=== PATIENT | female | born 1965 | race Caucasian/White ===

== ENCOUNTER 2016-12-28 21:57 | Emergency (ER) | payer OTHER, MEDICAID ==
[~2016-12-28] VITALS: Ht 172.7 cm; Wt 78.9 kg
[2016-12-28 22:11] VITALS: BP 131/80; PULSE 55; RESP 18; TEMP 97.5; O2SAT 97
--- NOTE | 2016-12-28 22:20 | NUR ---
Placed in room 07 . Placed on purchasing supervisor, blood pressure machine and pulse oximeter. To gown for exam. Side rails up. Report given to SUSANNE Em.
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
[2016-12-28] MEDS ORDERED: NACL 0.9% 1,000 ML IV ONE (22:54)
--- NOTE | 2016-12-28 22:55 | NUR ---
ER at bedside examining patient.
[2016-12-28] MEDS ORDERED: ONDANSETRON HCL 4 MG/2 ML VIAL IVP ONE (23:00)
[2016-12-28] MEDS ORDERED: MORPHINE 4 MG/ML INJ. SYRINGE IVP ONE (23:00)
--- NOTE | 2016-12-28 23:05 | NUR ---
# 20 gauge angiocath placed to Left antecubital . Use of asceptic technique. Opsite placed over site. Blood return noted. Blood for lab drawn from site. Flushed with 10 cc of normal saline. No evidence of infiltration noted. Patient tolerated well.
--- NOTE | 2016-12-28 23:10 | NUR ---
Urine specimen collected and sent lab for analyzing
[2016-12-28 23:46] LABS: BILIRUBIN,URINE NEGATIVE (NEGATIVE); BLOOD, URINE NEGATIVE (NEGATIVE); CLARITY/URINE CLEAR (CLEAR); COLOR,URINE YELLOW (YELLOW); GLUCOSE,URINE NEGATIVE (NEGATIVE); KETONES,URINE NEGATIVE (NEGATIVE); LEUKOCYTE ESTERASE ,URINE NEGATIVE (NEGATIVE); NITRITE, URINE NEGATIVE (NEGATIVE); PH,URINE 6.5 (5.0-8.0); PROTEIN URINE NEGATIVE (NEGATIVE); UROBILINOGEN,URINE 0.2 (0.2-1.0)
--- NOTE | 2016-12-28 23:57 | NUR ---
Patient reports pain 4/10 30 minutes after administration of Morphine. No adverse reactions noted. Will continue to monitor.
[2016-12-29 00:10] LABS: CALCIUM 10.1 mg/dL (8.4-11.0); CREATININE 0.72 mg/dL (0.55-1.30); POTASSIUM 3.6 mmol/L (3.5-5.1)
[2016-12-29 00:12] LABS: PROTHROMBIN TIME 10.4 SECS (9.5-12.5)
[2016-12-29 00:20] LABS: ALBUMIN 3.7 g/dL (3.4-4.8); TOTAL BILIRUBIN 0.4 mg/dL (0.0-1.0)
--- NOTE | 2016-12-29 00:27 | NUR ---
Patient resting quietly. No acute distress noted. Vital signs within normal range.
--- NOTE | 2016-12-29 01:32 | NUR ---
Patient resting quietly. No acute distress noted. Vital signs within normal range. Patient awaiting transportation home.
[2016-12-29 02:00] VITALS: BP 104/68; PULSE 50; RESP 23; TEMP 97.5; O2SAT 99
--- NOTE | 2016-12-29 02:00 | NUR ---
Patient given written and verbal discharge instructions and verbalizes understanding. ER MD discussed with patient the results and treatment provided. Patient in stable condition. ID arm band removed. IV catheter removed intact and dressing applied, no active bleeding. Rx of Tramadol given. Patient educated on pain management and to follow up with in 2-3 days. Pain Scale 0/10 Opportunity for questions provided and answered.
== END 2016-12-29 02:00 | disposition home or self-care (01) ==
LOC: SED 21:57
DX: S33.5XXA Sprain of ligaments of lumbar spine, initial encounter (principal); S13.4XXA Sprain of ligaments of cervical spine, initial encounter; R07.81 Pleurodynia; R68.84 Jaw pain; R51 Headache; J45.909 Unspecified asthma, uncomplicated; K21.9 Gastro-esophageal reflux disease without esophagitis; Z86.718 Personal history of other venous thrombosis and embolism; Z88.0 Allergy status to penicillin; Z88.1 Allergy status to other antibiotic agents; Z88.6 Allergy status to analgesic agent; Z91.040 Latex allergy status; Z88.8 Allergy status to other drugs, medicaments and biological substances; Z91.048 Other nonmedicinal substance allergy status; V89.2XXA Person injured in unspecified motor-vehicle accident, traffic, initial encounter; Y93.89 Activity, other specified; Y92.89 Other specified places as the place of occurrence of the external cause; Y99.8 Other external cause status
CPT/HCPCS: 36415; 70450; 71010; 71250; 72100; 72125; 80048; 80053; 81003; 82150; 83690; 85610; 85730; 96361; 96374; 96375; 99285; J2270; J2405; J7030

== ENCOUNTER 2017-10-28 13:32 | Emergency (ER) | payer OTHER, MEDICAID ==
[~2017-10-28] VITALS: Ht 172.7 cm; Wt 78.5 kg
[2017-10-28 13:32] VITALS: BP_SYST 119
[2017-10-28] MEDS ORDERED: KETAMINE HCL IN 0.9 % NACL 30 MG/3 ML SYRINGE IVP ONE (14:00)
[2017-10-28] MEDS ORDERED: fentaNYL CITRATE/PF 100 MCG/2 ML AMP IVP ONE (14:00)
[2017-10-28] MEDS ORDERED: ONDANSETRON HCL 4 MG/2 ML VIAL IVP ONE (14:00)
[2017-10-28] MEDS ORDERED: NACL 0.9% 1,000 ML IV ONE (14:00)
[2017-10-28 14:23] LABS: BASOPHILS % (AUTO) 0.7 % (0.0-2.0); EOSINOPHILS # (AUTO) 0.2 K/uL (0.0-0.4); EOSINOPHILS % (AUTO) 4.1 % (0.0-4.0); HEMATOCRIT 35.3 % (36-48); LYMPHOCYTES # (AUTO) 2.1 K/uL (1.0-5.5); LYMPHOCYTES % (AUTO) 36.3 % (20.5-51.5); MEAN CORPUSCULAR HEMOGLOBIN 30 pg (27-31); MEAN CORPUSCULAR HGB CONC 34 % (32-36); MEAN CORPUSCULAR VOLUME 89 fL (79.0-98.0); MONOCYTES # (AUTO) 0.3 K/uL (0.0-1.0); MONOCYTES % (AUTO) 5.3 % (1.7-9.3); NEUTROPHILS # (AUTO) 3.3 K/uL (1.8-7.7); NEUTROPHILS % (AUTO) 53.6 % (40.0-70.0); PLATELET COUNT (AUTO) 427 K/uL (130-430); RED BLOOD CELL COUNT(AUTO) 3.96 MIL/uL (4.2-6.2); RED CELL DISTRIBUTION WIDTH 13.1 % (9.0-15.0); WHITE BLOOD COUNT (AUTO) 5.9 K/uL (4.8-10.8)
[2017-10-28 14:35] LABS: CALCIUM 8.8 mg/dL (8.4-11.0); CREATININE 0.83 mg/dL (0.55-1.30); POTASSIUM 3.6 mmol/L (3.5-5.1)
[2017-10-28 14:41] LABS: ALBUMIN 3.4 g/dL (3.4-4.8); TOTAL BILIRUBIN 0.3 mg/dL (0.0-1.0)
[2017-10-28] MEDS ORDERED: KETAMINE HCL 50 MG/ML SYR ONE (14:49)
[2017-10-28 17:09] LABS: BILIRUBIN,URINE NEGATIVE (NEGATIVE); BLOOD, URINE 1+ (NEGATIVE); CLARITY/URINE CLEAR (CLEAR); COLOR,URINE YELLOW (YELLOW); GLUCOSE,URINE NEGATIVE (NEGATIVE); KETONES,URINE TRACE (NEGATIVE); LEUKOCYTE ESTERASE ,URINE 1+ (NEGATIVE); NITRITE, URINE NEGATIVE (NEGATIVE); PH,URINE 6.5 (5.0-8.0); PROTEIN URINE NEGATIVE (NEGATIVE); UROBILINOGEN,URINE 0.2 (0.2-1.0)
[2017-10-28 17:14] LABS: BACTERIA,URINE FEW /HPF (None Seen); RBC,URINE 0-3 /HPF (0-3)
[2017-10-28 17:53] VITALS: BP_SYST 121
== END 2017-10-28 17:52 | disposition home or self-care (01) ==
LOC: SED 13:32
DX: D25.9 Leiomyoma of uterus, unspecified (principal); N83.209 Unspecified ovarian cyst, unspecified side; K21.9 Gastro-esophageal reflux disease without esophagitis; J45.909 Unspecified asthma, uncomplicated; M79.7 Fibromyalgia; Z79.899 Other long term (current) drug therapy
CPT/HCPCS: 36415; 74176; 80053; 81000; 81025; 83690; 85025; 87086; 96374; 96375; 99285; J2405; J3010; J7030

== ENCOUNTER 2018-05-13 11:10 | Outpatient (CLI) | payer OTHER, MEDICAID | END 2018-05-13 19:23 | disposition home or self-care (01) | LOC: SRD 11:10 | PROVIDERS: ATTEND Internal Medicine | DX: R10.9 Unspecified abdominal pain (principal) | CPT/HCPCS: 74018 ==

== ENCOUNTER 2018-09-16 12:24 | Outpatient (CLI) | payer OTHER, MEDICAID | END 2018-09-16 20:39 | disposition home or self-care (01) | LOC: SMI 12:24 | PROVIDERS: ATTEND Internal Medicine | DX: R51 Headache (principal) | CPT/HCPCS: 70551 ==

== ENCOUNTER 2018-10-07 09:49 | Outpatient (CLI) | payer OTHER, MEDICAID | END 2018-10-07 20:23 | disposition home or self-care (01) | LOC: SMI 09:49 | PROVIDERS: ATTEND Internal Medicine | DX: M47.812 Spondylosis without myelopathy or radiculopathy, cervical region (principal); M48.02 Spinal stenosis, cervical region; M25.78 Osteophyte, vertebrae; M47.816 Spondylosis without myelopathy or radiculopathy, lumbar region; M48.061 Spinal stenosis, lumbar region without neurogenic claudication | CPT/HCPCS: 72141; 72148 ==

== ENCOUNTER 2018-10-10 08:43 | Outpatient (CLI) | payer OTHER, MEDICAID | END 2018-10-10 21:04 | disposition home or self-care (01) | LOC: SRD 08:43 | PROVIDERS: ATTEND Internal Medicine | DX: Z01.818 Encounter for other preprocedural examination (principal); E04.1 Nontoxic single thyroid nodule | CPT/HCPCS: 71046-TC; 76536-TC ==

== ENCOUNTER 2018-12-25 14:30 | Emergency (ER) | payer OTHER, MEDICAID ==
[~2018-12-25] VITALS: Ht 170.2 cm; Wt 72.6 kg
[2018-12-25 14:35] VITALS: BP_SYST 105
--- NOTE | 2018-12-25 14:49 | NUR ---
Patient to ER bed 04 to gown for evaluation. Side rails up.
--- NOTE | 2018-12-25 15:10 | NUR ---
Patient presented to ER with abdominal pain and vaginal bleeding. Patient A&Ox4, afebrile, ambulatory with walker to ER, pain 12/02, nasea, denies V/D. Patient states vaginal bleed x1 month post myectomy/ovarian cyst removal procedure in October. Patient states abdominal pain has been intermittent since procedure in October. Abdominal pain increased last to 12/02 prompting ER visit today.
[2018-12-25] MEDS ORDERED: NACL 0.9% 1,000 ML IV ONE (16:10)
--- NOTE | 2018-12-25 16:11 | NUR ---
ER Dr. Munoz at bedside examining patient.
[2018-12-25 16:44] LABS: BILIRUBIN,URINE NEGATIVE (NEGATIVE); BLOOD, URINE 3+ (NEGATIVE); CLARITY/URINE CLEAR (CLEAR); COLOR,URINE YELLOW (YELLOW); GLUCOSE,URINE NEGATIVE (NEGATIVE); KETONES,URINE NEGATIVE (NEGATIVE); LEUKOCYTE ESTERASE ,URINE NEGATIVE (NEGATIVE); NITRITE, URINE NEGATIVE (NEGATIVE); PROTEIN URINE NEGATIVE (NEGATIVE); UROBILINOGEN,URINE 0.2 (0.2-1.0)
[2018-12-25] MEDS ORDERED: MORPHINE 4 MG/ML INJ. SYRINGE IVP ONE (16:45)
[2018-12-25 16:57] LABS: BACTERIA,URINE FEW /HPF (None Seen); WBC,URINE 0-3 /HPF (0-3)
[2018-12-25 16:58] LABS: MUCUS,URINE None Seen /LPF (None Seen)
[2018-12-25 17:23] LABS: BASOPHILS % (AUTO) 0.7 % (0.0-2.0); EOSINOPHILS # (AUTO) 0.1 K/uL (0.0-0.4); EOSINOPHILS % (AUTO) 2.2 % (0.0-4.0); HEMATOCRIT 36.9 % (36-48); HEMOGLOBIN 12.2 g/dL (12.0-16.0); LYMPHOCYTES # (AUTO) 1.8 K/uL (1.0-5.5); LYMPHOCYTES % (AUTO) 31.2 % (20.5-51.5); MEAN CORPUSCULAR HEMOGLOBIN 29 pg (27-31); MEAN CORPUSCULAR HGB CONC 33 % (32-36); MEAN CORPUSCULAR VOLUME 89 fL (79.0-98.0); MONOCYTES # (AUTO) 0.3 K/uL (0.0-1.0); MONOCYTES % (AUTO) 4.6 % (1.7-9.3); NEUTROPHILS # (AUTO) 3.6 K/uL (1.8-7.7); NEUTROPHILS % (AUTO) 61.3 % (40.0-70.0); PLATELET COUNT (AUTO) 338 K/uL (130-430); RED BLOOD CELL COUNT(AUTO) 4.17 MIL/uL (4.2-6.2); RED CELL DISTRIBUTION WIDTH 15.2 % (9.0-15.0); WHITE BLOOD COUNT (AUTO) 5.9 K/uL (4.8-10.8)
[2018-12-25 17:25] LABS: ALBUMIN 3.6 g/dL (3.4-4.8); CALCIUM 9.1 mg/dL (8.4-11.0); CREATININE 0.64 mg/dL (0.55-1.30); POTASSIUM 4.1 mmol/L (3.5-5.1); TOTAL BILIRUBIN 0.2 mg/dL (0.0-1.0)
[2018-12-25] MEDS ORDERED: cefTRIAXone 1 GM IVPB PREMIX 50 ML IV ONE (17:45)
--- NOTE | 2018-12-25 18:55 | NUR ---
Patient given written and verbal discharge instructions and verbalizes understanding. ER MD discussed with patient the results and treatment provided. Patient in stable condition. ID arm band removed. IV catheter removed intact and dressing applied, no active bleeding. Rx of Ciproflaxin given. Patient educated on pain management and to follow up with PMD. Pain Scale 7/10 tolerable for patient . Opportunity for questions provided and answered. Medication side effect fact sheet provided.
[2018-12-25 19:14] VITALS: BP_SYST 105
== END 2018-12-25 18:55 | disposition home or self-care (01) ==
LOC: SED 14:30
DX: N39.0 Urinary tract infection, site not specified (principal); K21.9 Gastro-esophageal reflux disease without esophagitis; J45.909 Unspecified asthma, uncomplicated; M79.7 Fibromyalgia; Z85.41 Personal history of malignant neoplasm of cervix uteri; Z86.718 Personal history of other venous thrombosis and embolism; Z88.0 Allergy status to penicillin; Z88.1 Allergy status to other antibiotic agents; Z88.5 Allergy status to narcotic agent; Z91.048 Other nonmedicinal substance allergy status; Z88.8 Allergy status to other drugs, medicaments and biological substances
CPT/HCPCS: 36415; 74176; 80053; 81000; 81025; 83605; 85025; 87040; 93005; 96365; 96375; 99284; J0696; J2270; J7030

== ENCOUNTER 2019-01-27 09:40 | Outpatient (CLI) | payer OTHER, MEDICAID | END 2019-01-27 21:10 | disposition home or self-care (01) | LOC: SUS 09:40 | DX: I80.10 Phlebitis and thrombophlebitis of unspecified femoral vein (principal); C53.9 Malignant neoplasm of cervix uteri, unspecified; N83.299 Other ovarian cyst, unspecified side; M79.604 Pain in right leg | CPT/HCPCS: 76536-TC ==

== ENCOUNTER 2019-08-21 09:51 | Outpatient (CLI) | payer OTHER, MEDICAID | END 2019-08-21 19:51 | disposition home or self-care (01) | LOC: SUS 09:51 | PROVIDERS: ATTEND Internal Medicine | DX: E04.2 Nontoxic multinodular goiter (principal); N28.1 Cyst of kidney, acquired | CPT/HCPCS: 76536-TC; 76770 ==

== ENCOUNTER 2020-08-16 09:00 | Outpatient (CLI) | payer OTHER, MEDICAID | END 2020-08-16 20:26 | disposition home or self-care (01) | LOC: SUS 09:00 | PROVIDERS: ATTEND Internal Medicine | DX: E04.2 Nontoxic multinodular goiter (principal) | CPT/HCPCS: 76536-TC ==

== ENCOUNTER 2021-07-24 15:49 | Outpatient (CLI) | payer OTHER, MEDICAID | END 2021-07-24 21:03 | disposition home or self-care (01) | LOC: SUS 15:49 | PROVIDERS: ATTEND Internal Medicine | DX: E04.2 Nontoxic multinodular goiter (principal) | CPT/HCPCS: 76536-TC ==

== ENCOUNTER 2021-12-29 14:27 | Outpatient (CLI) | payer OTHER, MEDICAID | END 2021-12-29 15:50 | disposition home or self-care (01) | LOC: SUS 14:27 | PROVIDERS: ATTEND Internal Medicine | DX: E04.2 Nontoxic multinodular goiter (principal) | CPT/HCPCS: 76536-TC ==

== ENCOUNTER 2022-06-27 12:43 | Outpatient (CLI) | payer OTHER, MEDICAID | END 2022-06-27 20:20 | disposition home or self-care (01) | LOC: SUS 12:43 | PROVIDERS: ATTEND Internal Medicine | DX: E04.2 Nontoxic multinodular goiter (principal) | CPT/HCPCS: 76536-TC ==